=== PATIENT | male | born 1970 | race Two or more races ===

== ENCOUNTER 2024-12-12 15:17 | Emergency (ER) | payer OTHER, SELFPAY ==
[2024-12-12 15:20] VITALS: BP 166/93; PULSE 66; RESP 18; TEMP 37.2; O2SAT 95; BMI 26.6
--- NOTE | 2024-12-12 15:47 | XR_ITS ---
Examination: Duplex scan of the lower extremity, unilateral left Date and time of exam: December 12, 2024, 1609 hours INDICATIONS: Left leg pain and swelling beginning 2 weeks ago Technique: Duplex scan of the extremity veins using B-mode/grayscale imaging and Doppler spectral analysis and color flow Attention is directed to internal echogenicity, compression and augmentation involving these veins, color flow assessment, spectral analysis Findings: Major deep venous structures in the extremity demonstrate normal course and caliber. There is no evidence of deep vein thrombosis. Normal color flow and spectral analysis Upper calf cystic mass 5.4 x 1.6 x 5.8 cm, favor popliteal cyst Impression: Negative for DVT..
--- NOTE | 2024-12-12 15:48 | EDNOTE_ITS ---
Lower Extremity Injury RME/HPI General Stated Complaint: MEDICAL CLEARANCE Time Seen by Provider: 12/12/24 15:42 Arrival date/time: 12/12/24 15:17 RME / HPI RME / HPI Narrative: 54-year-old male patient who is taking a lot of estrogen for sex change came in for evaluation from intermediate for possible DVT left lower extremity. According to the patient she been having swelling and discomfort to the left lower extremity for 5 to 6 days. Needed an ultrasound today and preliminary reading of possible DVT. Denies any trauma to the leg denies any fever denies chest pain denies any palpitation denies any tachycardia denies any other complaints. Review of Systems Review of Systems Narrative Review of Systems: Review of system reviewed and within normal limits except mentioned in HPI ED Exam Narrative Physical exam: VITAL SIGNS: Reviewed. GENERAL APPEARANCE: Alert and interactive, follows commands, no acute distress, HEAD AND FACE: Non-traumatic. ENT: PERRL, pink conjunctivitis, eyelid no trauma, Mucous membrane moist. NECK: Supple, nontender, no nuchal rigidity. CHEST: No tenderness, no crepitus, no paradoxical movement, no retractions. LUNGS: Clear, well ventilated, symmetric, no rales, no wheezing, no ronchi, no stridor, good breath sounds bilaterally. HEART: Regular rate, regular rhythm, no murmur, no gallops. ABDOMEN: Soft, positive bowel sounds, nondistended, no guarding, nontender, no rebound, no masses, RECTAL: Deferred. GENITAL: Deferred. NEUROLOGICAL: Gross motor function intact sensory function intact, Appropriate for age. MUSCULOSKELETAL: low back nontender, full range of motion. EXTREMITIES: Left lower extremity is swelling and tenderness to the calf muscle,, full range of motion. pulses in dorsalis pedis and posterior tibial is pulse+2 SKIN: Color pink, dry, no rash, no lacerations, no abrasions, no contusions. LYMPHATICS: Deferred. Course Quality Measures none Orders Category Date Time Status US venous doppler LE LT Stat Exams 12/12/24 15:47 Completed CBC [CBC] Stat Lab 12/12/24 16:20 Completed CMP [Comprehensive Metabolic Panel] Stat Lab 12/12/24 16:20 Completed PTT [Partial Thromboplastin Time] Stat Lab 12/12/24 16:20 Completed Vital Signs Vital signs: Vital Signs Temperature 98.9 F 12/12/24 15:20 Pulse Rate 66 12/12/24 15:20 Respiratory Rate 18 12/12/24 15:20 Blood Pressure 166/93 H 12/12/24 15:20 Pulse Oximetry (%) 95 12/12/24 15:20 Oxygen Delivery Method Room Air 12/12/24 15:20 Extremity Injury, Lower MDM Narrative MDM Narrative:: 54-year-old male patient who is taking a lot of estrogen for sex change came in for evaluation from intermediate for possible DVT left lower extremity. According to the patient she been having swelling and discomfort to the left lower extremity for 5 to 6 days. Needed an ultrasound today and preliminary reading of possible DVT. Denies any trauma to the leg denies any fever denies chest pain denies any palpitation denies any tachycardia denies any other complaints. Ultrasound of the lower extremities negative for DVT. Patient's workup also came back normal. Results discussed with the patient. Patient is medically cleared to go back to intermediate Patient reports feeling better as well and giving evidence of significant clinical improvement, I believe patient is now a candidate for discharge. Patient data External records reviewed:: None Clinical information provided by:: patient Social determinants that could affect healthcare access:: none Patient has the following chronic illnesses:: None How is presenting disease/condition affected by chronic disease/condition?: no chronic disease Evaluation data The following diagnostics were reviewed and interpreted by me:: lab results and radiology exam(s) Lab and/or radiology exams considered but not ordered:: None Interpretation Summary: See results MDM Medications / Prescriptions Medications or Prescriptions considered but not ordered:: None Medication administrations:: None Consultations Consultation(s) initiated? (list below): No Diagnosis Extremity Injury, Lower Differential Diagnosis: other (Leg swelling, DVT,) Most likely diagnosis given after review of the tests above:: Leg swelling Admission Indicated Admission indicated?: indicated Admission Request Was there a request for admission?: No Disposition Plan Disposition Plan: Discharge Discharge Attestation Discharge Attestation: Patient condition: Stable Discharge Plan Plan Patient Disposition: HOME (Self Care) Discharge Disposition comment: Stable Problem List Clinical Impression: Leg swelling Patient/Caregiver Discharge Instructions Discharge Activity: activity as tolerated Education Materials: ED Leg Swelling in a Single Leg Additional Instructions: Thank you for the opportunity for serving you today. You are stable for discharged . You are advised to: Follow-up with your PCP in 1 to 2 days Return to ED for worsening of symptoms Elevate your legs as needed Print Language: Sami Stand Alone Forms: [facility] Award Info., Patient Portal Info Letter
[2024-12-12 16:34] LABS: Basophils % (Auto) 0 % (0-2.5); Eosinophils # (Auto) 0.2 Thou/mm3 (0.0-0.5); Eosinophils % (Auto) 2 % (0-10); Hematocrit 35.1 % (41.0-53.0); Hemoglobin 12.7 g/dL (13.5-16.0); Immature Granulocytes % (Auto) 0 % (0-0); Immature Granulocytes Auto 0.03 Thou/mm3 (0.00-0.00); Lymphocytes # (Auto) 1.4 Thou/mm3 (1.0-4.8); Lymphocytes % (Auto) 17 % (10-50); Mean Corpuscular HGB Conc 36.2 g/dl (31.0-37.0); Mean Corpuscular Hemoglobin 32.5 pg (25.0-35.0); Mean Corpuscular Volume 90 fL (80-100); Monocytes # (Auto) 0.4 Thou/mm3 (0.0-0.8); Monocytes % (Auto) 4 % (0-12); Neutrophils # (Auto) 6.2 Thou/mm3 (1.8-7.7); Neutrophils % (Auto) 76 % (37-80); Nucleated Red Blood Cell % 0 /100 WBC (0); Platelet Count 232 Thou/mm3 (140-440); RDW Standard Deviation 38.1 fL (35.1-43.9); Red Blood Count 3.91 Miln/mm3 (4.50-5.90); White Blood Count 8.2 Thou/mm3 (3.8-10.6)
[2024-12-12 16:45] LABS: Partial Thromboplastin Time 29.9 Seconds (22.0-36.0)
[2024-12-12 16:55] LABS: Alanine Aminotransferase 19 U/L (10-49); Albumin/Globulin Ratio 1.4 (1.2-2.2); Alkaline Phosphatase 63 U/L (46-116); Anion Gap 5 (7-16); Aspartate Amino Transferase 22 U/L (0-34); BUN/Creatinine Ratio 16 Ratio (12-20); Bilirubin,Total 0.4 mg/dL (0.3-1.2); Blood Urea Nitrogen 13 mg/dL (9-23); Calcium 8.5 mg/dL (8.3-10.6); Calcium (Corrected) 8.5 mg/dL (8.5-10.1); Carbon Dioxide 32.6 mMol/L (20.0-31.0); Chloride 102 mMol/L (98-107); Creatinine (Component) 0.8 mg/dL (0.6-1.3); Estimated Creatinine Clearance 105.6 mL/min (>60); Globulin 2.8 gm/dL (2.3-3.5); Glucose 105 mg/dL (74-106); Osmolality,Calculated 279 (275-295); Potassium 4.3 mMol/L (3.4-5.1); Sodium 140 mMol/L (136-145); Total Protein 6.8 gm/dL (5.7-8.2); eGFR > 60 See Note
[2024-12-12 17:56] VITALS: BP 157/94; PULSE 63; RESP 18; TEMP 36.9; O2SAT 99
== END 2024-12-12 17:56 | disposition home or self-care (01) ==
LOC: SERX 18:10
PROVIDERS: Nurse Practitioner Family; Emergency Provider Emergency Medicine
DX: M79.89 Other specified soft tissue disorders (principal); M79.605 Pain in left leg; Z87.890 Personal history of sex reassignment
CPT/HCPCS: 36415; 80053; 85025; 85730; 93971; 99284

== ENCOUNTER → 2025-04-10 | Outpatient (CLI) | payer OTHER, SELFPAY ==
--- NOTE | 2025-04-10 10:00 | XR_ITS ---
Examination: CT chest, without intravenous contrast. Sagittal and coronal 2-D reconstructions. Exam date and time: April 10, 2025, 1047 hours INDICATIONS: History 9 mm left lower lobe pulmonary nodule CTDI:vol (mGy) 12.7 DLP: (mGycm) 481 Technique: Multiple 3.0 mm axial sections of the chest to been obtained. Bone and lung density settings are obtained. Sagittal and coronal 2-D reconstructions have been obtained. Low dose protocols were performed. One or more of the following dose reduction techniques were used; automated exposure control, adjustment of the mA and/or KV according to patient size, use of iterative reconstruction technique. Findings: No thoracic aortic aneurysm dilatation Pulmonary artery segments are not enlarged. No paratracheal tracheobronchial or bronchopulmonary adenopathy Soft 4 mm pulmonary nodule right upper lobe No pneumonia or pulmonary edema No visualized liver or splenic lesion Cholelithiasis Kidneys partially visualized no hydronephrosis Mild thoracic spondylosis IMPRESSION: Soft 4 mm pulmonary nodule right upper lobe, consider 6-month follow-up CT chest without contrast Cholelithiasis
== END | disposition home or self-care (01) ==
DX: R91.1 Solitary pulmonary nodule (principal); K80.20 Calculus of gallbladder without cholecystitis without obstruction
CPT/HCPCS: 71250